=== PATIENT | female | born 1975 | race American Indian/Alaskan Native ===

== ENCOUNTER 2020-11-06 14:16 | Outpatient (CLI) | payer BC ==
--- NOTE | 2020-11-06 15:41 | Magnetic Resonance Report ---
MR lumbar spine wo con INDICATION / CLINICAL INFORMATION: 45 years Female; LOWER BACK PAIN M43.19. TECHNIQUE: Multisequence, multiplanar images of the lumbar spine were obtained. COMPARISON: None available. FINDINGS: ALIGNMENT: There appears be slight anterolisthesis of L4 relative to L3 and L5. Additionally, there i s suggestion of minimal retrolisthesis at L5-S1 with disc desiccation. There is also slight curvature of the lumbar spine, convex toward the left. VERTEBRAE:There is no significant edema involving the lumbar vertebral bodies at. VISUALIZED SPINAL CORD: The distal spinal cord appears to demonstrate appropriate signal intensity an d terminates at L1-2. [id number] ANALYSIS: L1-2: There is a mild left-sided at disc bulge which mildly encroaches on the left lateral recess at. There does not appear to be significant neural foraminal narrowing at. L2-3: No significant abnormality. L3-4: There is a minimal disc bulge without significant spinal stenosis or foraminal narrowing. L4-5: The broad-based disc bulge and facet joint hypertrophy contributes to marked of spinal stenosis . Additionally, there is mild neural foraminal narrowing bilaterally. L5-S1: The spondylosis and facet joint hypertrophy mildly encroach on the lateral recesses. Additiona lly, there is moderate right and mild left neural foraminal narrowing. PARASPINAL SOFT TISSUES: No significant abnormality. ADDITIONAL FINDINGS: No epidural collections are identified. IMPRESSION: 1. There is slight anterolisthesis at L4-5 with marked spinal stenosis and mild neural foraminal narr owing. 2. There is notable left facet joint arthropathy at L5-S1, greater on the right with moderate right a nd mild left neural foraminal narrowing. Signer Name: Edward Mueller MD Signed: 11/06/2020 3:36 PM Workstation Name: [id number]
== END 2020-11-06 14:17 | disposition home or self-care (01) ==
LOC: MRI 14:16
PROVIDERS: ATTEND Orthopaedic Surgery Sports Medicine
DX: M48.07 Spinal stenosis, lumbosacral region (principal); M47.27 Other spondylosis with radiculopathy, lumbosacral region; M51.16 Intervertebral disc disorders with radiculopathy, lumbar region
CPT/HCPCS: 72148